=== PATIENT | female | born 1970 | race Asian ===

== ENCOUNTER 2024-02-22 15:50 | Emergency (ER) | payer OTHER ==
[~2024-02-22] VITALS: Ht 162.6 cm; Wt 63.5 kg
[2024-02-22 16:38] VITALS: BP 142/69; TEMP 98.1
[2024-02-22 18:14] VITALS: O2SAT 99
== END 2024-02-22 18:14 | disposition home or self-care (01) ==
LOC: ER 15:52
DX: Z45.2 Encounter for adjustment and management of vascular access device (principal); I10 Essential (primary) hypertension; E11.9 Type 2 diabetes mellitus without complications
CPT/HCPCS: 36410

== ENCOUNTER → 2024-02-22 | Emergency (ER) | payer OTHER ==
[~2024-02-22] VITALS: Ht 165.1 cm; Wt 59.0 kg
[2024-02-22 13:05] VITALS: BP 143/68; TEMP 98; O2SAT 98
== END | disposition home or self-care (01) ==
LOC: ER 13:51
DX: Z45.2 Encounter for adjustment and management of vascular access device (principal)